=== PATIENT | male | born 1990 | race Caucasian/White ===

== ENCOUNTER → 2021-03-06 10:38 | Outpatient (CLI) | payer OTHER, SELFPAY | PROVIDERS: Visit Provider Nurse Practitioner | DX: U07.1 COVID-19 (principal) | CPT/HCPCS: C9803; U0003; U0005 ==

== ENCOUNTER 2021-09-08 11:04 | Emergency (ER) | payer BC, SELFPAY ==
[2021-09-08 11:18] VITALS: BP 131/68; PULSE 75; RESP 18; TEMP 36.7; O2SAT 97; BMI 28.1
--- NOTE | 2021-09-08 11:42 | HMH.EDUTC ---
[facility] [place] Disposition Clinical Impression: Need for Tdap vaccination Foreign body of left eye Qualifiers: Encounter type: initial encounter Qualified Code(s): T15.92XA - Foreign body on external eye, part unspecified, left eye, initial encounter Corneal abrasion Qualifiers: Encounter type: initial encounter Laterality: left Qualified Code(s): S05.02XA - Injury of conjunctiva and corneal abrasion without foreign body, left eye, initial encounter Disposition: Home, Self-Care Condition on Discharge: Good Instructions: How to Instill Eye Drops, DI for Corneal Abrasion, Corneal Abrasion, Tetanus, Diphtheria, Pertussis (Tdap) Vaccine, DI for Foreign Body in the Eye Additional Instructions: Go directly to [place]. The eye doctor there will treat your eye from there. Follow up with your primary care physician. GO TO THE ER FOR ANY WORSENING SYMPTOMS AND CONCERNS Referrals: Provider,Referral, [Primary Care Provider] - Juan F Zimmer OD [Referring] - Time of Disposition: 12:01 Medical Decision Making - Medical Records Medical records reviewed: No: I reviewed the patient's medical records. - [place] Inquiry Pt receiving controlled substance: No Vital Signs: 09/08/21 11:18 Temperature 98.0 F Temperature Source Oral Pulse Rate [Brachial] 75 Respiratory Rate 18 Blood Pressure [Right Arm] 131/68 Blood Pressure Mean [Right Arm] 89 Blood Pressure Source [Right Arm] Automatic Cuff Blood Pressure Position [Right Arm] Sitting 02 Sat by Pulse Oximetry 97 Oxygen Delivery Method Room Air - Lab Data Lab results reviewed: Yes: I reviewed the patient's lab results. Orders (Tests/Meds): ED MEDICATIONS Discontinued Medications Generic Name Dose Route Start Last Admin Trade Name Freq PRN Reason Stop Dose Admin Tetanus/Reduced Diphtheria/Acell Pertussis 0.5 ml 09/08/21 11:59 09/08/21 12:06 Tet/Diphth/Pert-Adult 0.5ml Syringe IM 09/08/21 12:00 0.5 ml .ONCE ONE Administration Medical Decision Narrative: [facility] was notified of this patient. He is to go straight there so Dr. Flaherty can evaluate his eye. [facility] [place] HPI - General Stated complaint: left eye redness Time Seen by Provider: 09/08/21 11:42 Mode of Arrival: Ambulatory Source of Information: Patient Limitations: No Limitations Description of Symptoms (Recalled from Triage Doc. by RN): F/B IN LEFT EYE HEENT Symptoms (Recalled from RN notes): Yes Resp Symptoms (Recalled from RN notes): No Skin Symptoms (Recalled from RN notes): No MS Symptoms (Recalled from RN notes): No Functional Status (Recalled from RN notes): N/A - History of Present Illness Provider Complaint: He states that after he got finished weed eating yesterday evening he noticed that he was having left eye sensitivity and foreign body sensation. He denies that his vision is decreased in the eye. His tetanus immunization is not up to date. - Related Data Allergies Allergy/AdvReac Type Severity Reaction Status Date / Time No Known Allergies Allergy Verified 09/08/21 11:59 - Worker's Comp Is this a Worker's Comp case?: No [facility] History - Hepatitis A Screen Attestation statement:: This patient has been screened for Hepatitis A risk factors. I have reviewed the patient's past medical history: Yes ROS Obtained: Yes All systems reviewed & no additional complaints - Constitutional Constitutional: Denies chills, Denies fever(s) - ENT Ears, Nose, Mouth, and Throat: Denies sore throat - Musculoskeletal Musculoskeletal: Denies joint pain - Integumentary/Breasts Skin/Breast: Denies rash Physical Exam - General General appearance: alert, in no apparent distress - Head Head exam: atraumatic, normocephalic, normal inspection - Eye Eye exam: Present: PERRL, EOMI, conjunctival redness - ENT ENT exam: Present: mucous membranes moist, normal external ear exam - Expanded ENT Exam TM/Canal exam: Bilateral TM: erythema,
[2021-09-08 12:26] VITALS: BP 130/62; PULSE 70; RESP 18; TEMP 36.7
== END 2021-09-08 12:29 | disposition home or self-care (01) ==
PROVIDERS: Emergency Provider Nurse Practitioner Family
DX: T15.92XA Foreign body on external eye, part unspecified, left eye, initial encounter (principal); S05.02XA Injury of conjunctiva and corneal abrasion without foreign body, left eye, initial encounter; W20.8XXA Other cause of strike by thrown, projected or falling object, initial encounter
CPT/HCPCS: 90471; 90715; 99212; G0463